=== PATIENT | male | born 1985 | race Caucasian/White ===

== ENCOUNTER 2021-01-03 08:21 | Emergency (ER) | payer BC, SELFPAY ==
[2021-01-03 08:26] VITALS: BP 151/78; PULSE 98; RESP 16; TEMP 37.4; O2SAT 100
[2021-01-03] MEDS: methylPREDNISolone SOD SUCC 125 MG VIAL IM (08:41)
--- NOTE | 2021-01-03 08:45 | ED.SKABFB ---
HPI - Skin/Abscess/Foreign Bdy General Chief complaint: Skin/Abscess/Foreign Body Stated complaint: Possible Poison Abbie Time Seen by Provider: 01/03/21 08:58 Source: patient History of Present Illness HPI narrative: patient presents with itcy rash to face, groin and both arms. patient states he was exposed to poison abbie 3 days ago and broke out in a rash 3 days ago. no resp problems no trouble swallowing has applied benadry cream with little releif. complaint: rash Related Data Allergies Allergy/AdvReac Type Severity Reaction Status Date / Time No Known Allergies Allergy Unverified 08/03/17 10:42 Review of Systems Review of Systems: Narrative: At time of signature, agree with nursing past medical, surgical, social and family history. There is no relevant family history pertinent to the presenting complaint GENERAL: Well-appearing, well-nourished, and in no acute distress. HEAD: Normocephalic, atraumatic. EYES: PERRLA and EOMI. ENT: Nares clear, no rhinorrhea or epistaxis. Mucous membranes moist. NECK: Supple. CHEST: Clear to auscultation. No respiratory distress. HEART: Regular rate and rhythm. No murmur heard. Normal peripheral pulses. ABDOMEN: Soft, nontender, nondistended, normal active bowel sounds. EXTREMITIES: Normal range of motion. No edema. SKIN: Warm, dry, rash to face groin and both arms NEURO: No focal deficits. Alert and oriented x3. [place] Coma Scale Eye Opening: Spontaneous 4 [place] Coma Scale Motor: Obeys Commands 6 [place] Coma Scale Verbal: Oriented 5 [place] Coma Scale Total 15 PMFSH Social History Social History Gender identity (if verbalized by the patient): Male Comments At time of signature, agree with nursing past medical, surgical, social and family history. There is no relevant family history pertinent to the presenting complaint Exam Narrative: Exam Narrative: GENERAL: Well-appearing, well-nourished, and in no acute distress. HEAD: Normocephalic, atraumatic. EYES: PERRLA and EOMI. ENT: Nares clear, no rhinorrhea or epistaxis. Mucous membranes moist. NECK: Supple. CHEST: Clear to auscultation. No respiratory distress. HEART: Regular rate and rhythm. No murmur heard. Normal peripheral pulses. ABDOMEN: Soft, nontender, nondistended, normal active bowel sounds. EXTREMITIES: Normal range of motion. No edema. SKIN: Warm, dry, RASH CONSISTENT WITH RHUS DERMATITIS. LINEAR DE LU[place] WITH WET LIKE APPEARS ON NEW AREAS. DIFFERENT STAGES PRESENT. REDNESS TO LESIONS. NO SIGNS OF INFECTION OR CELLULITIS/ABSCESS. NO VESICLES. NO ULCERATIONS. NO RAISED URTICARIAL LESIONS. NO LESIONS ALONG THE WAISTBAND OR IN WEB SPACES. NO BURROWS. NO PETECHIAE. NEURO: No focal deficits. Alert and oriented x3. [place] Coma Scale Eye Opening: Spontaneous 4 [place] Coma Scale Motor: Obeys Commands 6 Leo Coma Scale Verbal: Oriented 5 [place] Coma Scale Total 15 Course Vital Signs Vital signs: Vital Signs Temperature 37.4 C 01/03/21 08:26 Pulse Rate 98 01/03/21 08:26 Respiratory Rate 16 01/03/21 08:26 Blood Pressure 151/78 H 01/03/21 08:26 Pulse Oximetry 100 01/03/21 08:26 Temperature 37.4 C 01/03/21 08:26 Pulse Rate 98 01/03/21 08:26 Respiratory Rate 16 01/03/21 08:26 Blood Pressure 151/78 H 01/03/21 08:26 Pulse Oximetry 100 01/03/21 08:26 Please OTTO schedule a followup visit with your personal physician for further evaluation and treatment. Including recheck and discussion of your blood pressure. If your symptoms persist, change or worsen significantly before you can contact your personal physician then please, without delay, go to the emergency department for further evaluation MDM - Skin/Abscess/Foreign Bdy Differential Diagnosis Differential diagnosis: Likely abscess of skin or subcutaneous tissue, viral exanthem, dermatophytosis, urticaria, herpes zoster, allergic reaction to drug, cellulitis, eczema, insect bites and contact dermatitis Critical Care Time Cri
== END 2021-01-03 09:02 | disposition home or self-care (01) ==
PROVIDERS: Emergency Provider Nurse Practitioner Family
DX: L23.7 Allergic contact dermatitis due to plants, except food (principal)
CPT/HCPCS: 96372; 99203; G0463; J2930

== ENCOUNTER 2023-05-14 13:58 | Emergency (ER) | payer OTHER, SELFPAY ==
[2023-05-14 14:05] VITALS: BP 152/96; PULSE 106; RESP 20; TEMP 36.8; O2SAT 100
[2023-05-14 15:05] VITALS: BP 150/90
--- NOTE | 2023-05-14 15:22 | ED.URI ---
HPI - URI/Sore Throat General Chief Complaint: Upper Respiratory Infection Stated Complaint: Sore Throat Time Seen by Provider: 05/14/23 15:13 Source: patient and RN notes reviewed Mode of arrival: ambulatory Limitations: no limitations History of Present Illness HPI Narrative: Patient presents today complaining of a one-week history of sore throat, nasal congestion, rhinorrhea with occasional chills and sweats. Denies cough or fever. He has been taking Tylenol and ibuprofen with mild relief. Related Data Allergies Allergy/AdvReac Type Severity Reaction Status Date / Time No Known Allergies Allergy Unverified 05/14/23 14:28 Review of Systems Review of Systems: CONSTITUTIONAL: Denies body aches, fever.+ chills, sweats EYES: Denies visual changes, redness, or discharge. ENT: Denies otalgia.+ hoarseness, nasal congestion, sore throat, rhinorrhea CARDIOVASCULAR: Denies chest pain, palpitations, or edema. RESPIRATORY: Denies cough or dyspnea. GASTROINTESTINAL: Denies abdominal pain, nausea, vomiting, or diarrhea. GENITOURINARY: Denies dysuria or hematuria. SKIN: Denies rash, itching, or wounds. MUSCULOSKELETAL: Denies back pain, joint pain, or myalgia. NEUROLOGIC: Denies headache, numbness, tingling, or weakness. PSYCH: Denies depression or anxiety. [facility] Social History Social History Gender identity (if verbalized by the patient): Male Comments At time of signature, I have reviewed and agree with nursing past medical, surgical, social and family history unless otherwise noted. Please see nursing chart for further information. There is no relevant family history pertinent to the presenting complaint Exam Narrative: GENERAL: Mildly ill-appearing, well-nourished, and in no acute distress. HEAD: Normocephalic, atraumatic. EYES: EOMI. No redness or drainage. Conjunctivae normal. ENT: Mucous membranes pink and moist. Nares congested with rhinorrhea. TMs normal bilaterally. Throat erythematous with mild edema and white exudate. Uvula midline. Hoarse voice NECK: Normal AROM. Supple. No lymphadenopathy. CHEST: No respiratory distress. Clear to auscultation. HEART: Regular rate and rhythm. No murmur appreciated. Normal peripheral pulses. EXTREMITIES: Normal range of motion. No edema. SKIN: Warm, dry, no rash. Capillary refill normal. Normal skin turgor. NEURO: No focal deficits. Alert and oriented x3. Gait steady. PSYCH: Normal affect. No signs of depression or anxiety. Course Course Level of Care: Express Care Visit Vital Signs Vital signs: Vital Signs Temperature 98.2 F 05/14/23 14:05 Pulse Rate 106 H 05/14/23 14:05 Respiratory Rate 20 05/14/23 14:05 Blood Pressure 152/96 H 05/14/23 14:05 Pulse Oximetry 100 05/14/23 14:05 Oxygen Delivery Room Air 05/14/23 14:05 Temperature 98.2 F 05/14/23 14:05 Pulse Rate 106 H 05/14/23 14:05 Respiratory Rate 20 05/14/23 14:05 Blood Pressure 150/90 H 05/14/23 15:49 Pulse Oximetry 100 05/14/23 14:05 Oxygen Delivery Room Air 05/14/23 14:05 Reviewed MDM - URI/Sore Throat MDM Narrative Medical decision making narrative: Rapid strep negative. Culture pending. Patient declines testing for influenza and COVID-19. S patient given an injection of dexamethasone to help with his throat swelling and hoarse voice. Prescription for prednisone sent to pharmacy. Anticipatory guidance given. Differential Diagnosis Differential diagnosis: Likely upper respiratory infection, viral infection, pharyngitis and other (Strep throat, COVID-19, influenza) Lab Data Attestation: I reviewed the patient's lab results. Labs: Strep Screen Presumptive Negative *(Reference Range: Negative)* Critical Care Time Critical Care Time Critical Care Time: No Discharge Plan Discharge Clinical Impression: Pharyngitis Qualif
[2023-05-14 15:49] VITALS: BP 150/90
== END 2023-05-14 15:45 | disposition home or self-care (01) ==
PROVIDERS: Emergency Provider Nurse Practitioner
DX: J02.0 Streptococcal pharyngitis (principal)
CPT/HCPCS: 87081; 87147; 87880; 96372; 99213; G0463; J1100

== ENCOUNTER 2023-05-15 08:05 | Emergency (ER) | payer OTHER, SELFPAY ==
[2023-05-15 08:10] VITALS: BP 183/87; PULSE 113; O2SAT 97
--- NOTE | 2023-05-15 08:25 | ED.SOB ---
HPI - SOB/Dyspnea General Chief Complaint: Shortness of Breath/Dyspnea Stated Complaint: Shortness of Breath Time Seen by Provider: 05/15/23 08:10 Source: patient Mode of arrival: ambulatory Limitations: no limitations History of Present Illness HPI Narrative: Prakash is a 38-year-old male patient presenting to the clinic today with complaints of shortness of breath and stridor. He reports these symptoms started approximately at 7:00 a.m. this morning. Was seen yesterday in the clinic for a sore throat and diagnosed with pharyngitis. Was given prescription for 50 mg of prednisone x4 days. Strep screen was negative at that time. Took prednisone 50 mg this morning around 4:00 a.m. Also reports coughing up blood this morning. States he became very congested-felt like his throat is swelling/spasming and is having to keep his head hyperextended to be able to breathe. Related Data Allergies Allergy/AdvReac Type Severity Reaction Status Date / Time No Known Allergies Allergy Unverified 05/14/23 14:28 Review of Systems Review of Systems: Pertinent positives per HPI. Patient denies any fever, chills, rash, headache, visual changes, dizziness, chest pain, palpitations, nausea, vomiting, diarrhea, constipation, abdominal pain, or any urinary issues. [facility] Social History Social History Gender identity (if verbalized by the patient): Male Comments At the time of my signature, I reviewed and agree with the nursing past medical, surgical, social, and family history. There is no relevant family history pertinent to the patient complaint. Exam Narrative: General: Well-developed, well nourished, pale, diaphoretic, stridor Head: Normocephalic, atraumatic Eyes: Pupils equally round and reactive to light bilaterally, EOM intact, sclera and conjunctive clear, no discharge, lids normal Ears: TMs intact and clear, ear canals clear, no drainage, grossly hearing normal. Nose: Nares patent, clear discharge, no inflammation, no sinus tenderness. Mouth: Oropharynx red with swelling-airway appears to be open, without lesions or masses, good dentition, MMM. Neck: Supple, trachea midline, no enlargement of anterior or posterior cervical nodes, no thyroid masses or goiter palpable. Cardio: Regular rate and rhythm, s1 and s2 normal, no murmur appreciated. Resp: Mildly coarse lung sounds with stridor, no rhonchi, rales, wheezing or rubs, SpO2 97-100% on room air, able to speak Course Course Emergency Course: Portions of this record may have been created with voice recognition software. Level of Care: Express Care Visit Vital Signs Vital signs: Vital signs reviewed Transfer Transfered to: [facility] Transportation: ALS Transfer rationale: Shortness of breath, stridor, pale, diaphoretic Accepting physician: Dr. Molina Transfer comments: via ALS MDM - SOB/Dyspnea MDM Narrative Medical decision making narrative: At the time of visit patient is sitting up in the chair and the triage room, pale, diaphoretic, hyperextending his neck to breathe with stridor. EMS was called. iNT 20. Gauge was established in the left AC. Patient has just taken 50 mg of prednisone 4 hours ago. SpO2 is 97-100% on room air. Differential Diagnosis Differential diagnosis: Likely acute exacerbation of chronic obstructive airways disease, community acquired pneumonia, asthma with exacerbation and other (Epiglottitis, pharyngitis, stridor-laryngeal spasms) Discharge Plan Discharge Clinical Impression: Shortness of breath, Stridor Patient Disposition: Acute Care Hospital Condition: Guarded Prognosis Prescriptions: No Action prednisone 50 mg tablet 50 mg PO DAILY 4 Days Qty: 4 0RF Follow-up/Referrals: UNKNOWN,DOCTOR [Primary Care Provider] - Time of Disposition: 08:20 Quality NIHSS Nursing Documentation ED NIHSS nursing documentation: reviewed/agree
== END 2023-05-15 08:20 | disposition short-term general hospital (02) ==
PROVIDERS: Emergency Provider Nurse Practitioner Family
DX: R06.02 Shortness of breath (principal); R06.1 Stridor
CPT/HCPCS: 99215; G0463